=== PATIENT | male | born 1960 | race Caucasian/White ===

== ENCOUNTER → 2017-02-06 | Outpatient (CLI) | payer OTHER ==
[~2017-02-06] MED LIST: IOPAMIDOL (ISOVUE 370) 100 ML BTL IV ONE
== END ==
LOC: FIMAGING 07:51
PROVIDERS: ATTEND Psychiatry & Neurology Neurology
DX: Z86.73 Personal history of transient ischemic attack (TIA), and cerebral infarction without residual deficits (principal)
CPT/HCPCS: 70450; 70496; 70498; Q9967

== ENCOUNTER 2018-05-29 11:29 | Emergency (ER) | payer OTHER ==
[2018-05-29] MEDS ORDERED: OXYCODONE/APAP 5/325 TAB PO ONE (11:58)
[2018-05-29] MEDS ORDERED: TDAP ADULT 0.5 ML INJ (BOOSTRIX) IM ONE (11:58)
[2018-05-29] MEDS ORDERED: CEPHALEXIN 500 MG CAP PO ONE (11:58)
--- NOTE | 2018-05-29 12:13 | EDPHY ---
H & P Time Seen by Provider: 05/29/18 11:51 HPI/ROS: CHIEF COMPLAINT: Left radial wrist laceration HISTORY OF PRESENT ILLNESS: 57-year-old male with out-of-date tetanus had a heavy metallic object fall onto his left volar wrist sustaining laceration to his left radial wrist. . Occurred shortly prior to arrival. This was accidental. No paresthesia distally. No discoloration distally. PHYSICAL EXAM (Prior to examination, patient consented to physical exam, hands were washed and my usual and customary physical exam procedures followed) 1) GENERAL: Well-developed, well-nourished, alert and oriented. Appears to be in no acute distress. 2) HEAD: Normocephalic 3) HEENT: Pupils equal, round, reactive to light bilaterally. 4) LUNGS: Breathing comfortably. 5) MUSCULOSKELETAL: Soft compartments. Normal coloration. Flexor function intact distally with no deficits with actively and passively. 6) SKIN: 3 cm laceration volar distal forearm radial aspect 7) VASCULAR: Radial and ulnar pulses are appreciated distally. Normal coloration temperature distally. pulses and cap refill present are brisk. Positive Allens test . 8) NEUROLOGIC: Radial, ulnar, median nerve function intact with no deficits appreciated on exam . No wrist drop. DIFFERENTIAL DIAGNOSIS: in no particular order including but not limited to fracture, sprain, compartment syndrome Smoking Status: Never smoked Constitutional: Initial Vital Signs Temperature (C) 36.4 C 05/29/18 11:37 Heart Rate 64 05/29/18 11:37 Respiratory Rate 17 05/29/18 11:37 Blood Pressure 151/95 H 05/29/18 11:37 O2 Sat (%) 98 05/29/18 11:37 O2 Delivery Mode Room Air Allergies/Adverse Reactions: No Known Allergies Allergy (Unverified 05/29/18 11:37) Home Medications: Medication Instructions Recorded Cephalexin [Keflex] 500 mg PO TID 7 Days cap 05/29/18 MDM/Departure - MDM Imaging Results: Imaging Impressions Wrist X-Ray 05/29/18 11:58 Impression: No acute osseous findings or visible foreign object. Images reviewed myself Procedures: Procedure: Laceration repair. I explained the indications, risks and benefits for both laceration repair and anesthetic administration. Verbal consent was obtained from the patient . The laceration on the left distal forearm volar aspect was anesthetized using 0.5% bupivicaine with epinephrine . After anesthetic administered the patient was observed for a period of time and had no apparent adverse effects. The wound was cleaned, prepped, draped in normal sterile fashion and explored to its base. No foreign body seen, no foreign bodies palpated. There were no deep structures involved. No tendon injury was identified. The wound was repaired with 6 simple interrupted 5 O Ethilon sutures. The wound repair was complex. The procedure was performed by myself. Patient has been informed that scarring will occur, although efforts have been made to minimize this. Procedure: Splint A Velcro volar splint was applied by ER implementation technician to reduce stress on the laceration site. After application of the splint I returned and re-examined the patient. The splint was adequately immobilizing the joint and distal to the splint the patient's circulation and sensation were intact. Patient shows no signs of compartment syndrome. Was given orthopedic precautions. Medications Given: Discontinued Medications Cephalexin HCl (Keflex) 500 mg PO EDNOW ONE PRN Reason: Protocol Stop: 05/29/18 11:59 Last Admin: 05/29/18 12:32 Dose: 500 mg Diphtheria/Tetanus/Acell Pertussis (Boostrix) 0.5 ml IM .ONCE ONE Stop: 05/29/18 11:59 Last Admin: 05/29/18 12:32 Dose: 0.5 ml Oxycodone/Acetaminophen (Percocet 5/325) 1 tab PO EDNOW ONE Stop: 05/29/18 11:59 Last Admin: 05/29/18 12:32 Dose: 1 tab ED Course/Re-evaluation: I saw this patient independently based on established practice protocols. Care of patient under supervision of secondary supervising physician Dr Marley with whom I discussed case. Re-evaluation with serial exams with pre and post laceration repair. The patient remains with brisk ulnar and radial pulses with normal coloration distally, no paresthesias, no flexor deficits. Initiating antibiotic prophylactic therapy with Keflex, recommend hand surgery follow-up. Sutures to be removed in 10 days. He feels comfortable being discharged , all questions and concerns addressed by myself. - Depart Disposition: Home, Routine, Self-Care Clinical Impression: Laceration of wrist Qualifiers: Encounter type: initial encounter Laterality: left Qualified Code(s): S61.512A - Laceration without foreign body of left wrist, initial encounter Condition: Good Instructions: Laceration (ED) Additional Instructions: Return to the ER if you develop redness, swelling, discharge, warmth to the wound, red streaks going up your arm, or any other symptoms that concern you. Sutures to be removed in 10 days. Recommend he follow up with hand surgeon before then. You may return to the ER in 10 days for suture removal. Prescriptions: Cephalexin [Keflex] 500 mg PO TID 7 Days cap Referrals: Marilyn Rothman MD [Medical Doctor] - 1-2 days without fail
[2018-05-29 13:09] VITALS: BP 128/73
== END 2018-05-29 13:09 | disposition home or self-care (01) ==
PROC: 0XQHXZZ Repair Left Wrist Region, External Approach (ICD-10-PCS; principal; 2018-05-29)
DX: S61.512A Laceration without foreign body of left wrist, initial encounter (principal); Z23 Encounter for immunization; W20.8XXA Other cause of strike by thrown, projected or falling object, initial encounter; Y99.8 Other external cause status
CPT/HCPCS: 12002; 73110; 90471; 90715; 99283; L3984